=== PATIENT | female | born 1940 | race Caucasian/White ===

== ENCOUNTER 2016-09-06 09:33 | Emergency (ER) | payer MEDICARE ==
[2016-09-06] MEDS ORDERED: NS 0.9% 1000 ML* 1,000 ML IV ONE (10:06)
[2016-09-06] MEDS ORDERED: Acetaminophen TAB* 325 MG PO ONE (10:09)
[2016-09-06 10:51] LABS: Hematocrit 38 % (35-47); Hemoglobin 12.1 g/dl (12.0-16.0); Mean Corpuscular HGB Conc 32 g/dl (31-36); Mean Corpuscular Hemoglobin 26 pg (27-31); Mean Corpuscular Volume 82 fL (80-97); Mean Platelet Volume 10 um3 (7.4-10.4); Red Blood Count 4.65 10^6/ul (4.0-5.4); Red Cell Distribution Width 15 % (10.5-15); White Blood Count 4.7 10^3/ul (3.5-10.8)
[2016-09-06 11:05] LABS: Albumin 3.4 g/dL (3.2-5.2); BUN/Creatinine Ratio 15.9 (8-20); C Reactive Protein 12.05 mg/L (< 5.00); Calcium 9.5 mg/dL (8.6-10.3); EGFR African American 117.5 (>60); EGFR Non-African American 91.4 (>60); Globulin 3.1 g/dL (2-4); Potassium 3.5 mmol/L (3.5-5.0); Total Bilirubin 0.4 mg/dL (0.2-1.0); Total Protein 6.5 g/dL (6.4-8.9)
[2016-09-06 11:25] LABS: Urine Bilirubin Negative (Negative); Urine Glucose Negative (Negative); Urine Nitrite Negative (Negative)
[2016-09-06] MEDS ORDERED: Iohexol 300* (CONTRAST) 10 ML SDV IV ONE (11:39)
--- NOTE | 2016-09-06 12:40 | RAD ---
INDICATION: Abdominal pain. Vomiting. Constipation. COMPARISON: CT September 13, 2015 TECHNIQUE: Axial source images were obtained from the hemidiaphragms to the symphysis pubis following administration of oral and intravenous contrast. 101 mL Omnipaque 300 was utilized. Coronal and sagittal reconstructed images were acquired. Lung bases: The lung bases are clear. There is pacemaker artifact. Liver: The liver is normal in size. There are no masses. There is mild hepatic steatosis There is no ductal dilatation. Gallbladder: There are no calcified gallstones. There is no evidence of wall thickening or pericholecystic fluid. Spleen: The spleen is normal in size. There are no masses. Pancreas: There is no focal pancreatic mass or ductal dilatation. Adrenal glands: There is no evidence of adrenal mass. Kidneys: The kidneys are normal in size and position. There are prompt nephrograms and there is prompt excretion bilaterally. There are no renal parenchymal masses. There are several, bilateral, tiny (1 mm) nonobstructive renal calculi. Adenopathy: There is no evidence of adenopathy by size criteria. Fluid collections: There are no free or localized fluid collections. Vessels:There are no significant atherosclerotic changes involving the aorta. There is no focal aneurysm. The iliac vessels are normal in caliber. The IVC appears normal. GI tract: There are no acute findings. There is a hiatal hernia. The small bowel is unremarkable. There are extensive diverticula throughout the colon with mild mucosal thickening of the sigmoid colon which is likely chronic. There is no perienteric inflammatory change.. Pelvic organs: There is hysterectomy. There is no adnexal mass Bladder: There are no bladder masses. Abdominal and pelvic soft tissues: The extraperitoneal abdominal and pelvic soft tissues appear normal.. Osseous structures: There are no acute osseous findings. There is degenerative change of the lumbar spine with multilevel degenerative disc disease. There is right hip pinning. Other: None IMPRESSION: NO ACUTE CT FINDINGS. NO MASS OR INFLAMMATORY CHANGE. EXTENSIVE DIVERTICULA OF THE COLON. TINY, BILATERAL, NONOBSTRUCTIVE RENAL CALCULI.
[2016-09-06] MEDS ORDERED: Al Hydrox/Mg Hydrox/Simet LIQ* 30 ML UDC PO ONE (12:58)
[2016-09-06] MEDS ORDERED: Lidocaine 2% VISCOUS* 15 ML UDC PO ONE (12:58)
[2016-09-06] MEDS ORDERED: Hyoscyamine TAB* 0.125 MG PO ONE (12:58)
--- NOTE | 2016-09-06 13:05 | ED ---
GI/ HPI - HPI Summary HPI Summary: Patient presents with concerns of nausea, and vomiting. She recently struggled with constipation which has resolved however she feels all the constipation medications may be making her nauseous. Her symptoms have progressed over the last three days to the point that she vomits at least once a day, typically after a small meal. Intermittently she can eat a full meal without vomiting. She points to her epigastric region when she talks about her vomiting. She denies fever, chills, dyspnea or CP. She feels weak due to lack of appetite. - History of Current Complaint Hx Obtained From: Patient Onset/Duration: Started Weeks Ago, Atraumatic Timing: Intermittent, Lasting Minutes Severity: Moderate Current Severity: None Pain Intensity: 0 Location of Pain: Epigastric Pain Characteristics: Sharp Associated Signs and Symptoms: Positive: Nausea. Negative: Flank Pain, Lightheadedness, Pale - Additional Pertinent History Primary Care Physician: [id number] <Hai Mendoza - Last Filed: 09/06/16 19:10> <Lamar Barragan - Last Filed: 09/07/16 07:45> - History of Current Complaint Chief Complaint: EDAbdPain Time Seen by Provider: 09/06/16 09:47 Stated Complaint: VOMITTING - Allergy/Home Medications Allergies/Adverse Reactions: Allergies Allergy/AdvReac Type Severity Reaction Status Date / Time CI Pigment Blue 63 Allergy Unknown Verified 04/30/16 07:08 [From Pradaxa] Reaction Details Clopidogrel [From Plavix] Allergy Unknown Verified 04/30/16 07:08 Reaction Details Dabigatran [From Pradaxa] Allergy Unknown Verified 04/30/16 07:08 Reaction Details Yellow Dye [From Pradaxa] Allergy Unknown Verified 04/30/16 07:08 Reaction Details PMH/Surg Hx/FS Hx/Imm Hx Endocrine/Hematology History: Reports: Hx Thyroid Disease - hypothryroid Denies: Hx Diabetes Cardiovascular History: Reports: Hx Angina, Hx Atrial Fibrillation, 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, Hx Hypertension, Hx Pacemaker/ICD - 2/16, Other Cardiovascular Problems/Disorders - Cardiac arrhythmia Denies: Hx Congestive Heart Failure, Hx Coronary Artery Disease, Hx Hypercholesterolemia, Hx Myocardial Infarction, Hx Valvular Heart Disease Respiratory History: Reports: Hx Sleep Apnea - O2 at night Denies: Hx Asthma, Hx Chronic Obstructive Pulmonary Disease (COPD) GI History: Reports: Hx Gastroesophageal Reflux Disease, Hx Ulcer - healed History: Denies: Hx Renal Disease Musculoskeletal History: Reports: Hx Arthritis, Hx Bursitis, Hx Orthopedic Injury - L hip Fx - repaired, Other Musculoskeletal History Sensory History: Reports: Hx Contacts or Glasses, Hx Hearing Aid Opthamlomology History: Reports: Hx Contacts or Glasses Psychiatric History: Reports: Hx Anxiety - Surgical History Surgery Procedure, Year, and Place: TONSILLECTOMY CHILD. HYSTERECTOMY. Left TKR 2004, RIGHT HIP FX/REPAIR 10/2015 Hx Anesthesia Reactions: No - Immunization History Date of Tetanus Vaccine: pt states unsure Date of Influenza Vaccine: 2013 Infectious Disease History: No Infectious Disease History: Denies: Traveled Outside the [place] in Last 30 Days - Family History Known Family History: Positive: Cardiac Disease - Social History Occupation: Retired Lives: With Family Alcohol Use: None Hx Substance Use: No Substance Use Type: Reports: None Hx Tobacco Use: No Smoking Status (MU): Never Smoked Tobacco <Hai Mendoza - Last Filed: 09/06/16 19:10> Review of Systems Negative: Fever, Chills Negative: Chest Pain Negative: Shortness Of Breath Positive: Abdominal Pain - epigastric, Vomiting, Nausea. Negative: Diarrhea All Other Systems Reviewed And Are Negative: Yes <Hai Mendoza - Last Filed: 09/06/16 19:10> Physical Exam Triage Information Reviewed: Yes Vital Signs On Initial Exam: Initial Vitals Temp Pulse Resp BP Pulse Ox 97.5 F 69 20 129/72 97 09/06/16 09:35 09/06/16 09:35 09/06/16 09:35 09/06/16 09:35 09/06/16 09:35 Vital Signs Reviewed: Yes Appearance: Positive: Well-Appearing - Patient is well dressed, sipping asia kirsten on the stretcher in no acute distress when I enter the room., No Pain Distress, Well-Nourished Skin: Positive: Warm, Skin Color Reflects Adequate Perfusion, Dry, Soft Head/Face: Positive: Normal Head/Face Inspection Eyes: Positive: EOMI, WILIAN, Conjunctiva Clear ENT: Positive: Hearing grossly normal Neck: Positive: Supple, Nontender, No Lymphadenopathy Respiratory/Lung Sounds: Positive: Clear to Auscultation, Breath Sounds Present Cardiovascular: Positive: RRR Abdomen Description: Positive: Soft. Negative: Nontender - mild discomfort with palpation of the epigastric region, CVA Tenderness (R), CVA Tenderness (L) , Distended, Guarding, McBurney's Point Tenderness, Peritoneal Signs, Pulsatile Mass, Splenomegaly Bowel Sounds: Positive: Present Musculoskeletal: Negative: Edema Left, Edema Right Neurological: Positive: Sensory/Motor Intact, Alert, Oriented to Person Place, Time, NV Bundle Intact Distally, Normal Gait Psychiatric: Positive: Affect/Mood Appropriate AVPU Assessment: Alert <Hai Mendoza - Last Filed: 09/06/16 19:10> Vital Signs On Initial Exam: Initial Vitals Temp Pulse Resp BP Pulse Ox 97.5 F 69 20 129/72 97 09/06/16 09:35 09/06/16 09:35 09/06/16 09:35 09/06/16 09:35 09/06/16 09:35 <Lamar Barragan - Last Filed: 09/07/16 07:45> Diagnostics - Vital Signs Vital Signs Temp Pulse Resp BP Pulse Ox 09/06/16 10:07 98.4 F 65 20 148/86 96 09/06/16 09:35 97.5 F 69 20 129/72 97 - Laboratory Lab Results: Lab Results 09/06/16 09/06/16 09/06/16 Range/Units 10:25 10:25 10:25 WBC 4.7 (3.5-10.8) 10^3/ul RBC 4.65 (4.0-5.4) 10^6/ul Hgb 12.1 (12.0-16.0) g/dl Hct 38 (35-47) % MCV 82 (80-97) fL MCH 26 L (27-31) pg MCHC 32 (31-36) g/dl RDW 15 (10.5-15) % Plt Count 176 (150-450) 10^3/ul MPV 10 (7.4-10.4) um3 Neut % (Auto) 47.4 (38-83) % Lymph % (Auto) 31.2 (25-47) % Irion % (Auto) 14.0 H (1-9) % Eos % (Auto) 6.2 H (0-6) % Baso % (Auto) 1.2 (0-2) % Absolute Neuts (auto) 2.2 (1.5-7.7) 10^3/ul Absolute Lymphs (auto) 1.5 (1.0-4.8) 10^3/ul Absolute Monos (auto) 0.7 (0-0.8) 10^3/ul Absolute Eos (auto) 0.3 (0-0.6) 10^3/ul Absolute Basos (auto) 0.1 (0-0.2) 10^3/ul Absolute Nucleated RBC 0 10^3/ul Nucleated RBC % 0.1 Sodium 139 (133-145) mmol/L Potassium 3.5 (3.5-5.0) mmol/L Chloride 105 (101-111) mmol/L Carbon Dioxide 29 (22-32) mmol/L Anion Gap 5 (2-11) mmol/L BUN 10 (6-24) mg/dL Creatinine 0.63 (0.51-0.95) mg/dL Est GFR ( Amer) 117.5 (>60) Est GFR (Non-Af Amer) 91.4 (>60) BUN/Creatinine Ratio 15.9 (8-20) Glucose 114 H (70-100) mg/dL Lactic Acid 2.0 (0.5-2.0) mmol/L Calcium 9.5 (8.6-10.3) mg/dL Total Bilirubin 0.40 (0.2-1.0) mg/dL AST 12 L (13-39) U/L ALT 11 (7-52) U/L Alkaline Phosphatase 81 (34-104) U/L Troponin I Pending C-Reactive Protein 12.05 H (< 5.00) mg/L Total Protein 6.5 (6.4-8.9) g/dL Albumin 3.4 (3.2-5.2) g/dL Globulin 3.1 (2-4) g/dL Albumin/Globulin Ratio 1.1 (1-3) Amylase 47 (29-103) U/L Lipase 14 (11.0-82.0) U/L Urine Color Urine Appearance Urine pH (5-9) Ur Specific Arg[place] (1.010-1.030) Urine Protein (Negative) Urine Ketones (Negative) Urine Blood (Negative) Urine Nitrate (Negative) Urine Bilirubin (Negative) Urine Urobilinogen (Negative) Ur Leukocyte Esterase (Negative) Urine Glucose (Negative) 09/06/16 Range/Units 11:05 WBC (3.5-10.8) 10^3/ul RBC (4.0-5.4) 10^6/ul Hgb (12.0-16.0) g/dl Hct (35-47) % MCV (80-97) fL MCH (27-31) pg MCHC (31-36) g/dl RDW (10.5-15) % Plt Count (150-450) 10^3/ul MPV (7.4-10.4) um3 Neut % (Auto) (38-83) % Lymph % (Auto) (25-47) % Irion % (Auto) (1-9) % Eos % (Auto) (0-6) % Baso % (Auto) (0-2) % Absolute Neuts (auto) (1.5-7.7) 10^3/ul Absolute Lymphs (auto) (1.0-4.8) 10^3/ul Absolute Monos (auto) (0-0.8) 10^3/ul Absolute Eos (auto) (0-0.6) 10^3/ul Absolute Basos (auto) (0-0.2) 10^3/ul Absolute Nucleated RBC 10^3/ul Nucleated RBC % Sodium (133-145) mmol/L Potassium (3.5-5.0) mmol/L Chloride (101-111) mmol/L Carbon Dioxide (22-32) mmol/L Anion Gap (2-11) mmol/L BUN (6-24) mg/dL Creatinine (0.51-0.95) mg/dL Est GFR ( Amer) (>60) Est GFR (Non-Af Amer) (>60) BUN/Creatinine Ratio (8-20) Glucose (70-100) mg/dL Lactic Acid (0.5-2.0) mmol/L Calcium (8.6-10.3) mg/dL Total Bilirubin (0.2-1.0) mg/dL AST (13-39) U/L ALT (7-52) U/L Alkaline Phosphatase (34-104) U/L Troponin I C-Reactive Protein (< 5.00) mg/L Total Protein (6.4-8.9) g/dL Albumin (3.2-5.2) g/dL Globulin (2-4) g/dL Albumin/Globulin Ratio (1-3) Amylase (29-103) U/L Lipase (11.0-82.0) U/L Urine Color Yellow Urine Appearance Cloudy Urine pH 8.0 (5-9) Ur Specific [place] 1.004 L (1.010-1.030) Urine Protein Negative (Negative) Urine Ketones Negative (Negative) Urine Blood Negative (Negative) Urine Nitrate Negative (Negative) Urine Bilirubin Negative (Negative) Urine Urobilinogen Negative (Negative) Ur Leukocyte Esterase Negative (Negative) Urine Glucose Negative (Negative) Result Diagrams: 09/06/16 10:25 09/06/16 10:25 Lab Statement: Any lab studies that have been ordered have been reviewed, and results considered in the medical decision making process. - CT No standard instances CT Interpretation: No Acute Changes CT Interpretation Completed By: Radiologist <Hai Mendoza - Last Filed: 09/06/16 19:10> - Vital Signs Vital Signs Temp Pulse Resp BP Pulse Ox 09/06/16 14:22 99 F 63 20 127/73 09/06/16 14:19 63 92 09/06/16 13:00 69 96 09/06/16 12:46 126/68 09/06/16 12:07 62 97 09/06/16 12:00 62 97 09/06/16 11:30 62 119/66 95 09/06/16 11:08 80 95 09/06/16 10:30 66 142/80 95 09/06/16 10:14 65 96 09/06/16 10:11 148/86 09/06/16 10:07 98.4 F 65 20 148/86 96 09/06/16 09:35 97.5 F 69 20 129/72 97 - Laboratory Lab Results: Lab Results 09/06/16 09/06/16 09/06/16 Range/Units 10:25 10:25 10:25 WBC 4.7 (3.5-10.8) 10^3/ul RBC 4.65 (4.0-5.4) 10^6/ul Hgb 12.1 (12.0-16.0) g/dl Hct 38 (35-47) % MCV 82 (80-97) fL MCH 26 L (27-31) pg MCHC 32 (31-36) g/dl RDW 15 (10.5-15) % Plt Count 176 (150-450) 10^3/ul MPV 10 (7.4-10.4) um3 Neut % (Auto) 47.4 (38-83) % Lymph % (Auto) 31.2 (25-47) % Irion % (Auto) 14.0 H (1-9) % Eos % (Auto) 6.2 H (0-6) % Baso % (Auto) 1.2 (0-2) % Absolute Neuts (auto) 2.2 (1.5-7.7) 10^3/ul Absolute Lymphs (auto) 1.5 (1.0-4.8) 10^3/ul Absolute Monos (auto) 0.7 (0-0.8) 10^3/ul Absolute Eos (auto) 0.3 (0-0.6) 10^3/ul Absolute Basos (auto) 0.1 (0-0.2) 10^3/ul Absolute Nucleated RBC 0 10^3/ul Nucleated RBC % 0.1 Sodium 139 (133-145) mmol/L Potassium 3.5 (3.5-5.0) mmol/L Chloride 105 (101-111) mmol/L Carbon Dioxide 29 (22-32) mmol/L Anion Gap 5 (2-11) mmol/L BUN 10 (6-24) mg/dL Creatinine 0.63 (0.51-0.95) mg/dL Est GFR ( Amer) 117.5 (>60) Est GFR (Non-Af Amer) 91.4 (>60) BUN/Creatinine Ratio 15.9 (8-20) Glucose 114 H (70-100) mg/dL Lactic Acid 2.0 (0.5-2.0) mmol/L Calcium 9.5 (8.6-10.3) mg/dL Total Bilirubin 0.40 (0.2-1.0) mg/dL AST 12 L (13-39) U/L ALT 11 (7-52) U/L Alkaline Phosphatase 81 (34-104) U/L Troponin I 0.01 (<0.04) ng/mL C-Reactive Protein 12.05 H (< 5.00) mg/L Total Protein 6.5 (6.4-8.9) g/dL Albumin 3.4 (3.2-5.2) g/dL Globulin 3.1 (2-4) g/dL Albumin/Globulin Ratio 1.1 (1-3) Amylase 47 (29-103) U/L Lipase 14 (11.0-82.0) U/L Urine Color Urine Appearance Urine pH (5-9) Ur Specific Argos (1.010-1.030) Urine Protein (Negative) Urine Ketones (Negative) Urine Blood (Negative) Urine Nitrate (Negative) Urine Bilirubin (Negative) Urine Urobilinogen (Negative) Ur Leukocyte Esterase (Negative) Urine Glucose (Negative) 09/06/16 Range/Units 11:05 WBC (3.5-10.8) 10^3/ul RBC (4.0-5.4) 10^6/ul Hgb (12.0-16.0) g/dl Hct (35-47) % MCV (80-97) fL MCH (27-31) pg MCHC (31-36) g/dl RDW (10.5-15) % Plt Count (150-450) 10^3/ul MPV (7.4-10.4) um3 Neut % (Auto) (38-83) % Lymph % (Auto) (25-47) % Irion % (Auto) (1-9) % Eos % (Auto) (0-6) % Baso % (Auto) (0-2) % Absolute Neuts (auto) (1.5-7.7) 10^3/ul Absolute Lymphs (auto) (1.0-4.8) 10^3/ul Absolute Monos (auto) (0-0.8) 10^3/ul Absolute Eos (auto) (0-0.6) 10^3/ul Absolute Basos (auto) (0-0.2) 10^3/ul Absolute Nucleated RBC 10^3/ul Nucleated RBC % Sodium (133-145) mmol/L Potassium (3.5-5.0) mmol/L Chloride (101-111) mmol/L Carbon Dioxide (22-32) mmol/L Anion Gap (2-11) mmol/L BUN (6-24) mg/dL Creatinine (0.51-0.95) mg/dL Est GFR ( Amer) (>60) Est GFR (Non-Af Amer) (>60) BUN/Creatinine Ratio (8-20) Glucose (70-100) mg/dL Lactic Acid (0.5-2.0) mmol/L Calcium (8.6-10.3) mg/dL Total Bilirubin (0.2-1.0) mg/dL AST (13-39) U/L ALT (7-52) U/L Alkaline Phosphatase (34-104) U/L Troponin I (<0.04) ng/mL C-Reactive Protein (< 5.00) mg/L Total Protein (6.4-8.9) g/dL Albumin (3.2-5.2) g/dL Globulin (2-4) g/dL Albumin/Globulin Ratio (1-3) Amylase (29-103) U/L Lipase (11.0-82.0) U/L Urine Color Yellow Urine Appearance Cloudy Urine pH 8.0 (5-9) Ur Specific [place] 1.004 L (1.010-1.030) Urine Protein Negative (Negative) Urine Ketones Negative (Negative) Urine Blood Negative (Negative) Urine Nitrate Negative (Negative) Urine Bilirubin Negative (Negative) Urine Urobilinogen Negative (Negative) Ur Leukocyte Esterase Negative (Negative) Urine Glucose Negative (Negative) Result Diagrams: 09/06/16 10:25 09/06/16 10:25 Lab Statement: Any lab studies that have been ordered have been reviewed, and results considered in the medical decision making process. <Lamar Barragan - Last Filed: 09/07/16 07:45> GIGU Course/Dx - Course Course Of Treatment: I discussed the negative acute finding for the patient's tests. She will be referred to GI for evaluation and in the mean time consume a liquid diet. She understands to return to the ED is symptoms worsen. - Diagnoses Differential Diagnoses - Female: Abdominal Aortic Aneurysm, Cholelithiasis, Constipation, Esophagitis/Gastritis, Esophageal Varices, Gastritis, Gastroenteritis (Viral), Gerd, Neoplasm, Pancreatitis, Peptic Ulcer Disease, Peptic Ulcer Disease - Physician Notifications Discussed Care Of Patient With: Dr. Barragan, ED attending. <Hai Mendoza - Last Filed: 09/06/16 19:10> <Lamar Barragan - Last Filed: 09/07/16 07:45> - Diagnoses Provider Diagnoses: Abdominal pain Discharge <Hai Mendoza - Last Filed: 09/06/16 19:10> <Lamar Barragan - Last Filed: 09/07/16 07:45> - Discharge Plan Condition: Stable Disposition: HOME Patient Education Materials: Abdominal Pain (ED) Referrals: Lino Luevano MD [Medical Doctor] - Jordan Torres MD [Primary Care Provider] - Additional Instructions: Your tests today were negative for acute changes. Please consume a liquid diet only until you see Dr. Luevano. You can call his office today for an appointment next week. Return to the emergency department if symptoms worsen. Attestations User Type: Provider - I was available for consult. This patient was seen by the advanced practice provider. The patient was not seen by or examined by me.- Ljj <Lamar Barragan - Last Filed: 09/07/16 07:45>
[2016-09-06 13:21] LABS: Troponin I 0.01 ng/mL (<0.04)
[2016-09-06 14:23] VITALS: BP 127/73
== END 2016-09-06 14:22 | disposition home or self-care (01) ==
LOC: ED 09:33
DX: R10.13 Epigastric pain (principal); R11.2 Nausea with vomiting, unspecified
CPT/HCPCS: 36415; 74177; 80053; 81003; 82150; 83605; 83690; 84484; 85025; 86140; 99283; A9270-GY; Q9967

== ENCOUNTER 2022-04-25 05:48 | Observation (INO) ==
[2022-04-25 07:25] LABS: ABS Basophils 0.1 10^3/ul (0-0.2); ABS Eosinophils 0.1 10^3/ul (0-0.6); ABS Lymphocytes 2.1 10^3/ul (1.0-4.8); ABS Monocytes 0.8 10^3/ul (0-0.8); ABS Neutrophils 3.3 10^3/ul (1.5-7.7); Eosinophil % 2.2 %; Hematocrit 44 % (35-47); Hemoglobin 14.5 g/dL (12.0-16.0); Lymphocyte % 32.9 %; Mean Corpuscular HGB Conc 33 g/dL (31-36); Mean Corpuscular Hemoglobin 29 pg (27-31); Mean Corpuscular Volume 90 fL (80-97); Mean Platelet Volume 8.8 fL (7.4-10.4); Platelet Count 159 10^3/uL (150-450); Red Blood Count 4.94 10^6 /uL (3.70-4.87); Red Cell Distribution Width 13 % (10-15); White Blood Count 6.4 10^3/uL (3.5-10.8)
[2022-04-25 07:33] LABS: Urine Appearance Cloudy; Urine Bilirubin Negative (Negative); Urine Blood Negative (Negative); Urine Color Yellow; Urine Glucose Negative (Negative); Urine Ketones Negative (Negative); Urine Nitrite Positive (Negative); Urine Protein Negative (Negative); Urine Specific Gravity 1.004 (1.002-1.030); Urine Urobilinogen Negative (Negative)
[2022-04-25 07:42] LABS: Urine Bacteria 1+ (Absent); Urine Red Blood Cell Trace(0-2/hpf) (Absent); Urine Squamous Epithelial Cell Present (Absent); Urine White Blood Cell Trace(0-5/hpf) (Absent)
[2022-04-25 08:31] LABS: Albumin 4.1 g/dL (3.2-5.2); Albumin/Globulin Ratio 1.4 (1-3); Calcium 10.2 mg/dL (8.6-10.3); Globulin 2.9 g/dL (2-4); Magnesium 2.2 mg/dL (1.9-2.7); Potassium 4.2 mmol/L (3.5-5.0); Total Bilirubin 0.7 mg/dL (0.2-1.0); eGFR CKD-EPI 69.5 (>60)
[2022-04-25 08:41] LABS: TSH Ultra Thyroid Stim Horm 2.9 mcIU/mL (0.34-5.60)
[2022-04-25 09:00] LABS: High Sensitivity Troponin 1 Hr 5 pg/mL (<15)
[2022-04-25] MEDS ORDERED: Ondansetron 4 mg VIAL 2 MG/ML 2 ml VIAL IV PRN (11:36)
[2022-04-25] MEDS ORDERED: cefTRIAXone 1 gm/50 mL D5W 1 GM/50 ML BAG IV SCH (11:45)
[2022-04-25] MEDS ORDERED: Lactated Ringers 1000 ml BAG 1,000 ML IV ONE (14:03)
[2022-04-25] MEDS: cefTRIAXone 1 gm/50 mL D5W 1 GM/50 ML BAG IV SCH (16:10)
[2022-04-26 06:08] LABS: ABS Eosinophils 0.2 10^3/ul (0-0.6); ABS Lymphocytes 1.9 10^3/ul (1.0-4.8); ABS Monocytes 0.6 10^3/ul (0-0.8); ABS Neutrophils 2.5 10^3/ul (1.5-7.7); Eosinophil % 3.6 %; Hematocrit 40 % (35-47); Hemoglobin 12.8 g/dL (12.0-16.0); Lymphocyte % 36.8 %; Mean Corpuscular HGB Conc 32 g/dL (31-36); Mean Corpuscular Hemoglobin 29 pg (27-31); Mean Corpuscular Volume 90 fL (80-97); Mean Platelet Volume 8.9 fL (7.4-10.4); Nucleated Red Blood Cells % 0.1; Platelet Count 137 10^3/uL (150-450); Red Blood Count 4.42 10^6 /uL (3.70-4.87); Red Cell Distribution Width 13 % (10-15); White Blood Count 5.2 10^3/uL (3.5-10.8)
[2022-04-26 06:17] LABS: Calcium 9.4 mg/dL (8.6-10.3); Potassium 4.1 mmol/L (3.5-5.0); eGFR CKD-EPI 85.5 (>60)
[2022-04-26] MEDS ORDERED: COENZYME Q10 100 MG PO SCH (09:00)
[2022-04-26] MEDS ORDERED: Iohexol 350 (CONTRAST) 500 ML MDV IV ONE (15:45)
[2022-04-26 15:56] VITALS: BP 143/89
[2022-04-26] MEDS: cefTRIAXone 1 gm/50 mL D5W 1 GM/50 ML BAG IV SCH (18:22)
== END 2022-04-26 20:00 | disposition home or self-care (01) ==
LOC: EDHOLD 05:48 → ED 05:48 → SUATTDRO 11:37 → EDHOLD 13:00 → MED 14:58
PROVIDERS: ADMIT Internal Medicine; ATTEND Hospitalist

== ENCOUNTER 2024-07-13 21:10 | Observation (INO) ==
[2024-07-13] MEDS: Morphine 4 MG/ML VIAL (1 ml) IV ONE (21:41)
[2024-07-13] MEDS: Ondansetron 4 mg VIAL 2 MG/ML 2 ml VIAL IV ONE (21:41)
[2024-07-13 21:48] LABS: ABS Basophils 0.1 10^3/uL (0.0-0.1); ABS Eosinophils 0.2 10^3/uL (0.0-0.5); ABS Lymphocytes 2.4 10^3/uL (1.0-4.8); ABS Monocytes 0.6 10^3/uL (0.0-0.9); ABS Neutrophils 4.1 10^3/uL (1.5-7.6); ABS Nucleated RBC 0.01 10^3/ul; Eosinophil % 2.2 %; Hematocrit 41.3 % (35-45); Hemoglobin 14.1 g/dL (11.5-14.3); Lymphocyte % 33.5 %; Mean Corpuscular Hemoglobin 30.7 pg (27-33); Mean Corpuscular Hgb Conc 34.1 g/dL (31-36); Mean Corpuscular Volume 90.1 fL (80-97); Nucleated Red Blood Cells % 0.1 %/100WBC (0.0-0.8); Platelet Count 172 10^3/uL (150-450); Red Blood Count 4.58 10^6/uL (3.63-4.92); Red Cell Distribution Width 13.4 % (12-17); White Blood Count 7.3 10^3/uL (3.8-11.8)
[2024-07-13 22:03] LABS: INR 1.46 (0.85-1.14)
[2024-07-13 22:17] LABS: Albumin 4.3 g/dL (3.5-5.7); Albumin/Globulin Ratio 1.5 (1-3); Calcium 10.5 mg/dL (8.6-10.3); Creatinine, Serum 0.96 mg/dL (0.51-0.95); Globulin 2.9 g/dL (2-4); Potassium 4.4 mmol/L (3.5-5.0); Total Bilirubin 0.5 mg/dL (0.2-1.0); Total Protein 7.2 g/dL (6.4-8.9); eGFR CKD-EPI 57.6 (>60)
[2024-07-13] MEDS: Iodixanol 320 (CONTRAST) 100 ML SDV IV ONE (22:37)
[2024-07-13 23:20] LABS: High Sensitivity Troponin 1 Hr 6 pg/mL (<15)
[2024-07-14] MEDS ORDERED: Ondansetron 4 mg VIAL 2 MG/ML 2 ml VIAL IV PRN (02:52)
[2024-07-14 03:07] LABS: Magnesium 2.3 mg/dL (1.9-2.7)
[2024-07-14] MEDS ORDERED: Morphine 2 MG/ML SYRINGE IV PRN (03:52)
[2024-07-14] MEDS: Acetaminophen IV 1 GM/100ML 1,000 MG/100 ML BAG IV SCH (04:24)
[2024-07-14] MEDS: NS 0.9% 1000 ml BAG 1,000 ML IV SCH (04:24)
[2024-07-14 09:17] LABS: Hematocrit 38.3 % (35-45); Hemoglobin 12.8 g/dL (11.5-14.3); Mean Corpuscular Hemoglobin 30.4 pg (27-33); Mean Corpuscular Hgb Conc 33.5 g/dL (31-36); Mean Corpuscular Volume 90.8 fL (80-97); Mean Platelet Volume 9.5 fL (7.5-11.2); Platelet Count 146 10^3/uL (150-450); Red Blood Count 4.22 10^6/uL (3.63-4.92); Red Cell Distribution Width 13.4 % (12-17)
[2024-07-14 09:44] LABS: Calcium 9.8 mg/dL (8.6-10.3); Creatinine, Serum 0.77 mg/dL (0.51-0.95); Potassium 4.3 mmol/L (3.5-5.0); eGFR CKD-EPI 75.1 (>60)
[2024-07-14] MEDS: Enoxaparin 40 MG/0.4 ML SYR SUBCUT SCH (10:46)
[2024-07-14] MEDS: Diatrizoate Meg/Sod(CONTRAST) 30 ML ORAL.SOLN PO ONE (13:46)
[2024-07-14] MEDS: Lactated Ringers 1000 ml BAG 1,000 ML IV SCH (20:26)
[2024-07-15 06:39] LABS: ABS Basophils 0.1 10^3/uL (0.0-0.1); ABS Eosinophils 0.3 10^3/uL (0.0-0.5); ABS Lymphocytes 1.9 10^3/uL (1.0-4.8); ABS Monocytes 0.7 10^3/uL (0.0-0.9); ABS Neutrophils 2.9 10^3/uL (1.5-7.6); ABS Nucleated RBC 0.01 10^3/ul; Eosinophil % 5.3 %; Hematocrit 35.7 % (35-45); Hemoglobin 12.1 g/dL (11.5-14.3); Lymphocyte % 32.2 %; Mean Corpuscular Hemoglobin 30.6 pg (27-33); Mean Corpuscular Volume 90.1 fL (80-97); Mean Platelet Volume 9.6 fL (7.5-11.2); Nucleated Red Blood Cells % 0.1 %/100WBC (0.0-0.8); Platelet Count 131 10^3/uL (150-450); Red Blood Count 3.96 10^6/uL (3.63-4.92); Red Cell Distribution Width 13.6 % (12-17); White Blood Count 5.8 10^3/uL (3.8-11.8)
[2024-07-15 07:26] LABS: Calcium 8.8 mg/dL (8.6-10.3); Creatinine, Serum 0.66 mg/dL (0.51-0.95); Phosphorus 2.6 mg/dL (2.5-5.0); Potassium 3.9 mmol/L (3.5-5.0); eGFR CKD-EPI 85.4 (>60)
[2024-07-15 14:08] VITALS: BP 98/63
== END 2024-07-15 14:54 | disposition home health service (06) ==
LOC: EDHOLD 21:10 → ED 21:10 → SUATTDRO 07-14 02:44 → MED 07-14 06:30
PROVIDERS: ADMIT Internal Medicine; ATTEND Internal Medicine